=== PATIENT | male | born 1970 ===

== ENCOUNTER 2025-02-04 04:18 | Outpatient (CLI) | payer OTHER, SELFPAY ==
[2025-02-04 14:28] LABS: Abs Immature Grans 0.05 10^3/uL (0.0-0.06); HCT 44.3 % (40.0-50.0); HGB 15.0 g/dL (13.5-17.5); Immature Grans % 1.3 %; MCH 28.4 pg (27.0-33.0); MCHC 33.9 % (32.0-36.0); MCV 84 fL (80-95); MPV 9.2 fL (8.0-11.0); Platelet Count 170 10^3/uL (130-400); RBC 5.28 10^6/uL (4.36-5.78); RDW 12.4 % (11.8-14.1); RDW-SD 38.1 fL; WBC 3.86 10^3/uL (4.4-10.8)
[2025-02-04 15:04] LABS: ALT 32 U/L (16-63); AST 25 U/L (15-37); Albumin 4.4 g/dL (3.4-5.0); Alkaline Phosphatase 91 U/L (46-116); Anion Gap 6.7 mmol/L (3-11); BUN 19 mg/dL (7-18); Bilirubin, Total 0.7 mg/dL (0.2-1.0); CO2 28.3 mmol/L (21.0-32.0); Calcium 9.6 mg/dL (8.5-10.1); Chloride 105 mmol/L (98-107); Estimated GFR 88.33 (mL/min/1.73m2); Glucose 97 mg/dL (74-106); Potassium 3.9 mmol/L (3.5-5.1); Sodium 140 mmol/L (136-145); Total Protein 7.5 g/dL (6.4-8.2)
== END 2025-02-04 04:19 | disposition home or self-care (01) ==
LOC: LBO 04:19
PROVIDERS: PCP Internal Medicine; Visit Provider Internal Medicine Hematology & Oncology
DX: D80.1 Nonfamilial hypogammaglobulinemia (principal); D70.9 Neutropenia, unspecified
CPT/HCPCS: 36415; 80053; 85025